=== PATIENT | female | born 1980 | race Caucasian/White ===

== ENCOUNTER 2016-07-23 17:58 | Emergency (ER) | payer OTHER ==
[~2016-07-23] VITALS: Wt 51.7 kg
[~2016-07-23 17:58] MED LIST: ALBUTEROL0.09 MG/A2 IH; AMOXICILLIN500 MG PO; ANTIVERT/2525 M1 PO; ANTIVERT/2525 MG PO; ANTIVERT25 MG PO; AUGMENTIN 875875 MG PO; CIPRO100 MG PO; CLARITIN10 MG PO; CLINDAMYCIN150 MG PO; CORTISPORIN SUS10 ML OT; CYCLOBENZAPRINE10 MG PO; CYCLOBENZAPRINE5 M3 PO; Diabeta,Micron2.5 MG PO; FLAGYL500 MG; FLAGYL500 MG PO; IBUPROFEN600 MG PO; IRON; IRON TABLETS325 MG PO; LIDOCAINE HCL100 M1 MM; MACROBID100 M1 PO; METROLOTION 5959 ML TP; MOTRIN800 MG PO; Motrin,Rufen800 MG PO; NKHM; NO DAILY MEDS; PHENERGAN12.5 M1 PO; PRENATAL1 TA3 PO; PROMETHAZINE25 M1 PO; QVAR8.7 GM IH; VICODIN 5/500 505 MG PO; ZITHROMAX Z PA250 MG PO; ZITHROMAX250 MG PO; ZOFRAN ODT4 MG SL; ZOFRAN4 MG PO; ZOLOFT50 MG PO; [UNRECOGNIZED DRUG - OTHER] PO
[2016-07-23 18:11] VITALS: BP 113/83
[2016-07-23] MEDS ORDERED: ZITHROMAX250 MG PO (18:28)
[2016-07-23] MEDS ORDERED: MEDROL DOSEPAK4 MG PO (18:28)
== END 2016-07-23 18:31 | disposition home or self-care (01) ==
LOC: ED 17:58
DX: J06.9 Acute upper respiratory infection, unspecified (principal); J45.901 Unspecified asthma with (acute) exacerbation; F17.200 Nicotine dependence, unspecified, uncomplicated; Z88.1 Allergy status to other antibiotic agents

== ENCOUNTER 2016-08-31 19:31 | Emergency (ER) | payer OTHER ==
[~2016-08-31] VITALS: Wt 65.8 kg
[~2016-08-31 19:31] MED LIST changes: +MEDROL DOSEPAK4 MG PO
[2016-08-31 19:39] VITALS: BP 116/69
[2016-08-31] MEDS ORDERED: PREDNISONE10 MG PO (19:43)
== END 2016-08-31 20:01 | disposition home or self-care (01) ==
LOC: ED 19:31
DX: M77.9 Enthesopathy, unspecified (principal); Z79.899 Other long term (current) drug therapy; Z88.1 Allergy status to other antibiotic agents

== ENCOUNTER 2016-09-14 09:33 | Emergency (ER) | payer OTHER ==
[~2016-09-14] VITALS: Ht 154.9 cm; Wt 54.9 kg
[~2016-09-14 09:33] MED LIST changes: +PREDNISONE10 MG PO
[2016-09-14] MEDS ORDERED: VENTOLIN H0.09 MG/AC INH (09:41)
[2016-09-14 10:58] VITALS: BP 106/63
== END 2016-09-14 10:48 | disposition home or self-care (01) ==
LOC: ED 09:33
DX: R51 Headache (principal); F17.200 Nicotine dependence, unspecified, uncomplicated; J45.909 Unspecified asthma, uncomplicated; Z88.1 Allergy status to other antibiotic agents

== ENCOUNTER 2016-09-30 17:01 | Emergency (ER) | payer OTHER ==
[~2016-09-30] VITALS: Ht 154.9 cm; Wt 56.2 kg
[~2016-09-30 17:01] MED LIST changes: +VENTOLIN H0.09 MG/AC INH
[2016-09-30 17:06] VITALS: BP 96/64
== END 2016-09-30 19:05 | disposition home or self-care (01) ==
LOC: ED 17:01
DX: T14.8 Other injury of unspecified body region (principal); M25.532 Pain in left wrist; M25.531 Pain in right wrist; M25.571 Pain in right ankle and joints of right foot; M25.561 Pain in right knee; M25.562 Pain in left knee; M54.2 Cervicalgia; F17.200 Nicotine dependence, unspecified, uncomplicated; Z88.1 Allergy status to other antibiotic agents; W10.9XXA Fall (on) (from) unspecified stairs and steps, initial encounter; Y93.9 Activity, unspecified; Y92.9 Unspecified place or not applicable; Y99.9 Unspecified external cause status

== ENCOUNTER → 2016-12-19 | Outpatient (CLI) | payer OTHER | END | disposition home or self-care (01) | LOC: RAD 08:40 | DX: M25.562 Pain in left knee (principal); M25.561 Pain in right knee ==

== ENCOUNTER 2017-05-20 10:26 | Emergency (ER) | payer OTHER ==
[~2017-05-20] VITALS: Ht 154.9 cm; Wt 54.4 kg
[2017-05-20 11:06] VITALS: BP 90/46
[2017-05-20 12:01] LABS: HEMATOCRIT 41.3 % (37.0-47.0); MEAN CELL VOLUME 92.4 fl (81.0-99.0); MEAN CORPUSCULAR HGB 31.3 pg (27.0-31.0); MEAN CORPUSCULAR HGB CONC 33.9 g/dl (33.0-37.0); MEAN PLATELET VOLUME 10.6 fl (9.6-12.3); PLATELET COUNT AUTOMATED 178 10*3/uL (130-400); RED BLOOD COUNT 4.47 10*6/uL (4.10-5.10); RED CELL DISTRI WIDTH 12.5 % (0-14.5); WHITE BLOOD COUNT 12.5 10*3/uL (4.8-10.8)
[2017-05-20 12:14] LABS: BILIRUBIN NEGATIVE (NEGATIVE); BLOOD NEGATIVE (NEGATIVE); CLARITY CLOUDY (CLEAR); COLOR YELLOW (YELLOW); GLUCOSE NEGATIVE (NEGATIVE); KETONE NEGATIVE (NEGATIVE); LEUKO ESTERASE NEGATIVE (NEGATIVE); NITRITE NEGATIVE (NEGATIVE)
[2017-05-20 12:15] LABS: BUN 10 mg/dl (7-24); CHLORIDE 108 mmol/L (98-107); CREATININE 0.63 mg/dL (0.55-1.02); POTASSIUM 3.7 mmol/L (3.5-5.1); SODIUM 139 mmol/L (136-145)
[2017-05-20 12:24] LABS: BASOPHILS 1 % (0-1); PLATELET SUFFICIENCY NORMAL (NORMAL); TOTAL CELLS COUNTED 100 #CELLS
[2017-05-20 12:25] LABS: VACUOLATION OF NEUTROPHILS SLIGHT
[2017-05-20 12:52] LABS: BACTERIA 2+; MUCOUS 3+
[2017-05-20] MEDS ORDERED: ZOFRAN ODT4 MG SL (13:04)
== END 2017-05-20 13:57 | disposition home or self-care (01) ==
LOC: ED 10:26
PROVIDERS: Emergency Medicine
DX: B34.9 Viral infection, unspecified (principal); J45.909 Unspecified asthma, uncomplicated; Z88.1 Allergy status to other antibiotic agents

== ENCOUNTER → 2017-06-25 | Outpatient (CLI) | payer OTHER | END | disposition home or self-care (01) | LOC: LAB 13:50 | DX: R19.7 Diarrhea, unspecified (principal) ==

== ENCOUNTER → 2017-08-06 | Outpatient (CLI) | payer OTHER | END | disposition home or self-care (01) | LOC: LAB 09:40 | DX: E03.9 Hypothyroidism, unspecified (principal) ==

== ENCOUNTER 2017-09-14 16:27 | Emergency (ER) | payer OTHER ==
[~2017-09-14] VITALS: Ht 154.9 cm; Wt 53.5 kg
[2017-09-14 16:30] VITALS: BP 116/76
[2017-09-14] MEDS ORDERED: Synthroid,Levo50 MCG PO (16:31)
[2017-09-14 16:55] LABS: BASO % 0.5 % (0.0-1.0); EOS # 0.3 10*3/uL (0.0-0.4); EOS % 3.6 % (1.0-4.0); HEMATOCRIT 41.5 % (37.0-47.0); LYMPH # 2.5 10*3/uL (1.3-4.4); MEAN CORPUSCULAR HGB 31.4 pg (27.0-31.0); MEAN CORPUSCULAR HGB CONC 33.7 g/dl (33.0-37.0); MEAN PLATELET VOLUME 10.9 fl (9.6-12.3); MONO # 0.6 10*3/uL (0.1-1.0); MONO % 7.5 % (3.0-9.0); NEUT # 4.4 10*3/uL (2.3-7.9); NEUT % 56.3 % (47.0-73.0); PLATELET COUNT AUTOMATED 195 10*3/uL (130-400); RED BLOOD COUNT 4.46 10*6/uL (4.10-5.10); RED CELL DISTRI WIDTH 12.5 % (0-14.5); WHITE BLOOD COUNT 7.8 10*3/uL (4.8-10.8)
[2017-09-14 17:21] LABS: ALBUMIN 3.7 gm/dl (3.1-4.5); ALKALINE PHOSPHATASE 86 U/L (45-117); B-hCG (QUALITATIVE) NEGATIVE (NEGATIVE); BUN 7 mg/dl (7-24); CHLORIDE 108 mmol/L (98-107); CREATININE 0.62 mg/dL (0.55-1.02); POTASSIUM 3.7 mmol/L (3.5-5.1); SGOT/AST 11 IU/L (3-35); SGPT/ALT 13 U/L (12-78); SODIUM 141 mmol/L (136-145); TOTAL PROTEIN 6.9 gm/dL (6.4-8.2)
[2017-09-14 17:22] LABS: TROPONIN I < 0.015 ng/ml (<0.045)
[2017-09-14] MEDS ORDERED: ANAPROX DS550 MG PO (17:57)
== END 2017-09-14 17:59 | disposition home or self-care (01) ==
LOC: ED 16:27
PROVIDERS: Physician Assistant
DX: R07.89 Other chest pain (principal); Z88.8 Allergy status to other drugs, medicaments and biological substances

== ENCOUNTER 2018-02-15 13:58 | Emergency (ER) | payer OTHER ==
[~2018-02-15] VITALS: Wt 54.4 kg
[~2018-02-15 13:58] MED LIST changes: +ANAPROX DS550 MG PO; +NAPROSYN500 MG PO; +Synthroid,Levo50 MCG PO
[2018-02-15 14:00] VITALS: BP 111/58
[2018-02-15] MEDS ORDERED: SEPTDS PO (14:55)
== END 2018-02-15 15:04 | disposition home or self-care (01) ==
LOC: ED 13:58
DX: L02.416 Cutaneous abscess of left lower limb (principal); Z88.1 Allergy status to other antibiotic agents; Z79.899 Other long term (current) drug therapy

== ENCOUNTER 2018-02-21 13:29 | Emergency (ER) | payer OTHER ==
[~2018-02-21] VITALS: Ht 154.9 cm; Wt 54.4 kg
[~2018-02-21 13:29] MED LIST changes: +SEPTDS PO
[2018-02-21 13:31] VITALS: BP 113/68
[2018-02-21] MEDS ORDERED: CLINDAMYCIN HC300 MG PO (14:10)
[2018-02-21] MEDS ORDERED: DELTASONE20 M1 PO (14:11)
[2018-02-21] MEDS ORDERED: BENADRYL ALLERG25 M5 PO (14:11)
== END 2018-02-21 14:28 | disposition home or self-care (01) ==
LOC: ED 13:29
DX: L50.9 Urticaria, unspecified (principal); Z88.1 Allergy status to other antibiotic agents; Z79.899 Other long term (current) drug therapy

== ENCOUNTER 2018-03-24 16:43 | Emergency (ER) | payer OTHER ==
[~2018-03-24] VITALS: Ht 154.9 cm; Wt 54.4 kg
[~2018-03-24 16:43] MED LIST changes: +BENADRYL ALLERG25 M5 PO; +CLINDAMYCIN HC300 MG PO; +DELTASONE20 M1 PO
[2018-03-24 16:44] VITALS: BP 106/64
== END 2018-03-24 17:10 | disposition home or self-care (01) ==
LOC: ED 16:43
DX: S61.012A Laceration without foreign body of left thumb without damage to nail, initial encounter (principal); Z88.1 Allergy status to other antibiotic agents; Z79.2 Long term (current) use of antibiotics; Z79.899 Other long term (current) drug therapy; W26.0XXA Contact with knife, initial encounter; Y93.89 Activity, other specified; Y92.89 Other specified places as the place of occurrence of the external cause; Y99.8 Other external cause status

== ENCOUNTER → 2018-05-01 | Day surgery (SDC) | payer OTHER ==
[~2018-05-01] VITALS: Ht 154.9 cm; Wt 60.8 kg
[~2018-05-01] MED LIST changes: +AMOXICILLIN500 M2 PO; +FLONASE ALLERG9.9 ML NAS; +ZYRTEC10 MG PO
--- NOTE | ~2018-05-01 | O ---
[place], [place] OPERATIVE NOTE NAME: INGA MCCORMICK UNIT #: [id number] ROOM: DOCTOR: CHIN TOBAR MD BIRTHDATE: [birth year] DOS: PROCEDURE: Esophagogastroduodenoscopy and biopsy. INDICATION: Dysphagia. PERMIT: An informed consent was obtained from the patient after the indication of procedure, the alternatives and potential complications were explained to her. PROCEDURE MEDICATION: Sedation was administered by Anesthesiology Department. SCOPE USED: Olympus diagnostic adult upper endoscope GIF-180. DEPTH OF INSERTION: To the descending duodenum. FINDINGS: After adequate sedation, the patient was placed in left lateral decubitus position. The scope was introduced under direct visualization through the upper esophageal sphincter into the esophagus. Esophageal mucosa showed white membranes suggestive of esophageal candidiasis, brushing was obtained. The patient also had evidence of esophageal rings in the proximal esophagus suggestive of eosinophilic esophagitis and random biopsies were obtained. The GE junction was identified at 38 cm from incisors with mild erosive esophagitis. The stomach was then intubated. Gastric mucosa inspected. Moderate gastritis was seen with no discrete ulcers or active bleeding. A MICKI test was performed from the gastric antrum and body. On retroflexed views in the fundus, no hiatal hernia was seen. Pylorus was intubated easily. The duodenal bulb and descending duodenum were within normal range. The scope was then withdrawn after the stomach was decompressed. The patient tolerated the procedure well. IMPRESSION: 1. White membrane of the esophagus, rule out esophageal candidiasis, brushing obtained. 2. Esophageal rings, random biopsies obtained to rule out eosinophilic esophagitis. 3. Mild erosive esophagitis. 4. Gastritis, MICKI test performed. PLAN: We will start the patient on proton pump inhibitors with the Prilosec 40 mg daily. We will review the cytopathology and histopathology reports and treat the patient accordingly. Office followup will be scheduled in 1-2 weeks. [place], [place] OPERATIVE NOTE NAME: INGA MCCORMICK Roe UNIT #: [id number] ROOM: DOCTOR: CHIN TOBAR MD BIRTHDATE: [birth year] CHIN TOBAR MD CM:OPRECORD:OPERATIVE NOTE [id number] CHIN TOBAR MD 05/01/18 1452 interface
[2018-05-01 06:30] VITALS: BP 93/55
[2018-05-01 08:25] VITALS: BP 91/51
[2018-05-01 08:40] VITALS: BP 89/54
[2018-05-01 08:55] VITALS: BP 90/56
== END | disposition home or self-care (01) ==
LOC: SDC 04-29 08:00
DX: K20.0 Eosinophilic esophagitis (principal); K29.70 Gastritis, unspecified, without bleeding; J45.909 Unspecified asthma, uncomplicated; G43.909 Migraine, unspecified, not intractable, without status migrainosus; F15.90 Other stimulant use, unspecified, uncomplicated; Z88.8 Allergy status to other drugs, medicaments and biological substances; Z88.1 Allergy status to other antibiotic agents; Z79.899 Other long term (current) drug therapy; Z87.891 Personal history of nicotine dependence; Z98.890 Other specified postprocedural states; Z97.5 Presence of (intrauterine) contraceptive device; Z86.14 Personal history of Methicillin resistant Staphylococcus aureus infection; Z83.3 Family history of diabetes mellitus; Z82.3 Family history of stroke; Z82.49 Family history of ischemic heart disease and other diseases of the circulatory system

== ENCOUNTER 2018-05-05 09:29 | Emergency (ER) | payer OTHER ==
[~2018-05-05] VITALS: Ht 154.9 cm; Wt 53.5 kg
[~2018-05-05 09:29] MED LIST changes: -AMOXICILLIN500 M2 PO; -FLONASE ALLERG9.9 ML NAS; -ZYRTEC10 MG PO
[2018-05-05 09:30] VITALS: BP 91/66
[2018-05-05] MEDS ORDERED: FLONASE ALLERG9.9 ML NAS (09:57)
[2018-05-05] MEDS ORDERED: ZYRTEC10 MG PO (09:57)
[2018-05-05] MEDS ORDERED: AMOXICILLIN500 M2 PO (09:57)
== END 2018-05-05 10:11 | disposition home or self-care (01) ==
LOC: ED 09:29
DX: J01.90 Acute sinusitis, unspecified (principal); Z88.1 Allergy status to other antibiotic agents

== ENCOUNTER 2018-06-07 18:36 | Emergency (ER) | payer OTHER ==
[~2018-06-07] VITALS: Ht 154.9 cm; Wt 60.8 kg
[~2018-06-07 18:36] MED LIST changes: +AMOXICILLIN500 M2 PO; +FLONASE ALLERG9.9 ML NAS; +ZYRTEC10 MG PO
[2018-06-07 18:37] VITALS: BP 109/66
[2018-06-07 19:25] LABS: BASO % 0.1 % (0.0-1.0); EOS # 0.1 10*3/uL (0.0-0.4); EOS % 1.1 % (1.0-4.0); HEMATOCRIT 41.3 % (37.0-47.0); HEMOGLOBIN 13.9 g/dl (12.0-16.0); LYMPH # 1.2 10*3/uL (1.3-4.4); LYMPH % 14.7 % (27.0-41.0); MEAN CELL VOLUME 93.7 fl (81.0-99.0); MEAN CORPUSCULAR HGB 31.5 pg (27.0-31.0); MEAN CORPUSCULAR HGB CONC 33.7 g/dl (33.0-37.0); MONO # 0.6 10*3/uL (0.1-1.0); MONO % 7.7 % (3.0-9.0); NEUT # 6.4 10*3/uL (2.3-7.9); NEUT % 76.2 % (47.0-73.0); PLATELET COUNT AUTOMATED 218 10*3/uL (130-400); RED BLOOD COUNT 4.41 10*6/uL (4.10-5.10); RED CELL DISTRI WIDTH 11.9 % (0-14.5); WHITE BLOOD COUNT 8.3 10*3/uL (4.8-10.8)
[2018-06-07 19:45] LABS: BILIRUBIN 1+ (NEGATIVE); BLOOD NEGATIVE (NEGATIVE); CLARITY SL CLOUDY (CLEAR); COLOR YELLOW (YELLOW); GLUCOSE NEGATIVE (NEGATIVE); KETONE TRACE (NEGATIVE); LEUKO ESTERASE NEGATIVE (NEGATIVE); NITRITE NEGATIVE (NEGATIVE); PH 5.5 (5.0-9.0); SPECIFIC GRAVITY >= 1.030 (1.005-1.030); UROBILINOGEN 0.2 E.U./dl (0.2-1.0)
[2018-06-07 19:47] LABS: ALBUMIN 3.7 gm/dl (3.1-4.5); ALKALINE PHOSPHATASE 88 U/L (45-117); BUN 11 mg/dl (7-24); CHLORIDE 109 mmol/L (98-107); CREATININE 0.68 mg/dL (0.55-1.02); LIPASE 103 U/L (73-393); POTASSIUM 3.7 mmol/L (3.5-5.1); SGOT/AST 14 IU/L (3-35); SGPT/ALT 21 U/L (12-78); SODIUM 141 mmol/L (136-145); TOTAL PROTEIN 7.3 gm/dL (6.4-8.2)
[2018-06-07 19:52] LABS: BACTERIA 2+; EPITHELIAL CELLS 0-2; MUCOUS 1+
[2018-06-07] MEDS ORDERED: ZOFRAN4 MG PO (20:08)
[2018-08-17] MEDS ORDERED: Motrin,Rufen800 MG PO (23:08)
== END 2018-06-07 20:24 | disposition home or self-care (01) ==
LOC: ED 18:36
PROVIDERS: Nurse Practitioner Family
DX: A08.4 Viral intestinal infection, unspecified (principal); E07.9 Disorder of thyroid, unspecified; Z88.1 Allergy status to other antibiotic agents; Z79.2 Long term (current) use of antibiotics; Z79.899 Other long term (current) drug therapy

== ENCOUNTER 2018-08-27 11:16 | Emergency (ER) | payer OTHER ==
[~2018-08-27] VITALS: Ht 154.9 cm; Wt 65.8 kg
[2018-08-27 11:19] VITALS: BP 95/67
[2018-08-27 11:49] LABS: BASO % 0.5 % (0.0-1.0); EOS # 0.2 10*3/uL (0.0-0.4); EOS % 2.2 % (1.0-4.0); HEMATOCRIT 39.6 % (37.0-47.0); HEMOGLOBIN 13.1 g/dl (12.0-16.0); LYMPH # 1.8 10*3/uL (1.3-4.4); LYMPH % 23.6 % (27.0-41.0); MEAN CELL VOLUME 94.5 fl (81.0-99.0); MEAN CORPUSCULAR HGB 31.3 pg (27.0-31.0); MEAN CORPUSCULAR HGB CONC 33.1 g/dl (33.0-37.0); MEAN PLATELET VOLUME 11.2 fl (9.6-12.3); MONO # 0.5 10*3/uL (0.1-1.0); MONO % 6.7 % (3.0-9.0); NEUT # 5.1 10*3/uL (2.3-7.9); NEUT % 66.7 % (47.0-73.0); PLATELET COUNT AUTOMATED 222 10*3/uL (130-400); RED BLOOD COUNT 4.19 10*6/uL (4.10-5.10); RED CELL DISTRI WIDTH 12.1 % (0-14.5); WHITE BLOOD COUNT 7.7 10*3/uL (4.8-10.8)
[2018-08-27 12:05] LABS: ALKALINE PHOSPHATASE 85 U/L (45-117); BUN 8 mg/dl (7-24); CHLORIDE 110 mmol/L (98-107); CREATININE 0.65 mg/dL (0.55-1.02); POTASSIUM 3.7 mmol/L (3.5-5.1); SGOT/AST 10 IU/L (3-35); SGPT/ALT 16 U/L (12-78); SODIUM 142 mmol/L (136-145); TOTAL PROTEIN 7.4 gm/dL (6.4-8.2)
[2018-08-27] MEDS ORDERED: MIRALAX119 GM PO (12:39)
[2018-08-27] MEDS ORDERED: DULCOLAX STOOL100 M1 PO (12:39)
[2018-08-27] MEDS ORDERED: ANUSOL-HC25 MG R (12:39)
== END 2018-08-27 12:42 | disposition home or self-care (01) ==
LOC: ED 11:16
PROVIDERS: Nurse Practitioner Family
DX: K64.5 Perianal venous thrombosis (principal); E07.89 Other specified disorders of thyroid; J45.909 Unspecified asthma, uncomplicated; Z79.899 Other long term (current) drug therapy; Z88.1 Allergy status to other antibiotic agents

== ENCOUNTER 2018-09-02 17:27 | Emergency (ER) | payer OTHER ==
[~2018-09-02] VITALS: Ht 154.9 cm; Wt 65.8 kg
[~2018-09-02 17:27] MED LIST changes: +ANUSOL-HC25 MG R; +DULCOLAX STOOL100 M1 PO; +MIRALAX119 GM PO
[2018-09-02 18:29] LABS: BASO % 0.5 % (0.0-1.0); EOS # 0.3 10*3/uL (0.0-0.4); EOS % 3.2 % (1.0-4.0); HEMATOCRIT 36.4 % (37.0-47.0); LYMPH # 1.9 10*3/uL (1.3-4.4); LYMPH % 22.2 % (27.0-41.0); MEAN CELL VOLUME 95.5 fl (81.0-99.0); MEAN CORPUSCULAR HGB 31.5 pg (27.0-31.0); MONO # 0.7 10*3/uL (0.1-1.0); MONO % 8.2 % (3.0-9.0); NEUT # 5.7 10*3/uL (2.3-7.9); NEUT % 65.6 % (47.0-73.0); PLATELET COUNT AUTOMATED 220 10*3/uL (130-400); RED BLOOD COUNT 3.81 10*6/uL (4.10-5.10); RED CELL DISTRI WIDTH 12.3 % (0-14.5); WHITE BLOOD COUNT 8.7 10*3/uL (4.8-10.8)
[2018-09-02 18:30] LABS: BILIRUBIN NEGATIVE (NEGATIVE); BLOOD TRACE-LYSED (NEGATIVE); CLARITY CLEAR (CLEAR); COLOR YELLOW (YELLOW); GLUCOSE NEGATIVE (NEGATIVE); KETONE TRACE (NEGATIVE); LEUKO ESTERASE NEGATIVE (NEGATIVE); NITRITE NEGATIVE (NEGATIVE); PH 5.5 (5.0-9.0); SPECIFIC GRAVITY >= 1.030 (1.005-1.030); UROBILINOGEN 0.2 E.U./dl (0.2-1.0)
[2018-09-02 18:41] LABS: BACTERIA 1+; CALCIUM OXALATE CRYSTALS 2+; MUCOUS 3+
[2018-09-02 18:49] LABS: ALBUMIN 3.6 gm/dl (3.1-4.5); ALKALINE PHOSPHATASE 77 U/L (45-117); BUN 7 mg/dl (7-24); CHLORIDE 113 mmol/L (98-107); CREATININE 0.75 mg/dL (0.55-1.02); LIPASE 103 U/L (73-393); POTASSIUM 3.4 mmol/L (3.5-5.1); SGOT/AST 6 IU/L (3-35); SGPT/ALT 18 U/L (12-78); SODIUM 145 mmol/L (136-145); TOTAL PROTEIN 7.2 gm/dL (6.4-8.2)
[2018-09-02 20:08] VITALS: BP 110/64
[2018-09-02] MEDS ORDERED: SEPTDS PO (20:32)
== END 2018-09-02 20:50 | disposition home or self-care (01) ==
LOC: ED 17:27
PROVIDERS: Physician Assistant
DX: N39.0 Urinary tract infection, site not specified (principal); F17.200 Nicotine dependence, unspecified, uncomplicated; Z88.1 Allergy status to other antibiotic agents; Z79.2 Long term (current) use of antibiotics; Z79.899 Other long term (current) drug therapy

== ENCOUNTER 2018-09-22 09:03 | Emergency (ER) | payer OTHER ==
[~2018-09-22] VITALS: Ht 154.9 cm; Wt 56.7 kg
--- NOTE | ~2018-09-22 | EKG ---
[place], [place] ELECTROCARDIOGRAM REPORT NAME: INGA MCCORMICK UNIT #: [id number] ROOM: DOCTOR: EPIPHANY DRAFT REPORT BIRTHDATE: [birth year] [facility] Test Date: 2018-09-22 Test Time: 10:14:09 Pat Name: INGA MCCORMICK Department: Room: Gender: F Inpatient Services Director: : 1980 Requested By: DARI GOMEZ Order Number: [id number] Reading MD: Gregor Qureshi MD Measurements Intervals [place] Rate: 52 P: 61 AL: 150 QRS: 35 QRSD: 94 T: 54 QT: 509 QTc: 474 Interpretive Statements Sinus bradycardia No previous ECG available for comparison Electronically Signed On 09-23-2018 11:20:57 PDT by Gregor Qureshi MD CM:EKGRPT:ELECTROCARDIOGRAM REPORT [id number] DARI GOMEZ EPIPHANY DRAFT REPORT DARI GOMEZ
[2018-09-22 10:15] LABS: BILIRUBIN NEGATIVE (NEGATIVE); BLOOD NEGATIVE (NEGATIVE); CLARITY CLEAR (CLEAR); COLOR YELLOW (YELLOW); GLUCOSE NEGATIVE (NEGATIVE); KETONE NEGATIVE (NEGATIVE); LEUKO ESTERASE NEGATIVE (NEGATIVE); NITRITE NEGATIVE (NEGATIVE); PH 7.5 (5.0-9.0); SPECIFIC GRAVITY <= 1.005 (1.005-1.030); UROBILINOGEN 0.2 E.U./dl (0.2-1.0)
[2018-09-22 10:18] LABS: BASO % 0.3 % (0.0-1.0); EOS # 0.4 10*3/uL (0.0-0.4); EOS % 5.5 % (1.0-4.0); HEMATOCRIT 38.9 % (37.0-47.0); HEMOGLOBIN 12.8 g/dl (12.0-16.0); LYMPH # 1.8 10*3/uL (1.3-4.4); LYMPH % 28.2 % (27.0-41.0); MEAN CELL VOLUME 96.3 fl (81.0-99.0); MEAN CORPUSCULAR HGB 31.7 pg (27.0-31.0); MEAN CORPUSCULAR HGB CONC 32.9 g/dl (33.0-37.0); MEAN PLATELET VOLUME 10.1 fl (9.6-12.3); MONO # 0.5 10*3/uL (0.1-1.0); MONO % 7.7 % (3.0-9.0); NEUT # 3.7 10*3/uL (2.3-7.9); NEUT % 58.1 % (47.0-73.0); PLATELET COUNT AUTOMATED 215 10*3/uL (130-400); RED BLOOD COUNT 4.04 10*6/uL (4.10-5.10); RED CELL DISTRI WIDTH 12.6 % (0-14.5); WHITE BLOOD COUNT 6.4 10*3/uL (4.8-10.8)
[2018-09-22 10:29] LABS: RBC 0-2 rbc/hpf (0-2)
[2018-09-22 10:34] LABS: ALBUMIN 3.8 gm/dl (3.1-4.5); ALKALINE PHOSPHATASE 70 U/L (45-117); BUN 7 mg/dl (7-24); CHLORIDE 109 mmol/L (98-107); POTASSIUM 4.1 mmol/L (3.5-5.1); SGOT/AST 10 IU/L (3-35); SGPT/ALT 15 U/L (12-78); SODIUM 141 mmol/L (136-145); TOTAL PROTEIN 6.8 gm/dL (6.4-8.2)
[2018-09-22 10:35] LABS: TROPONIN I < 0.015 ng/ml (<0.045)
[2018-09-22 11:30] VITALS: BP 109/61
== END 2018-09-22 12:05 | disposition home or self-care (01) ==
LOC: ED 09:03
PROVIDERS: Nurse Practitioner Family
DX: R53.83 Other fatigue (principal); R42 Dizziness and giddiness; R20.0 Anesthesia of skin; F17.200 Nicotine dependence, unspecified, uncomplicated; Z88.1 Allergy status to other antibiotic agents; Z79.2 Long term (current) use of antibiotics; Z79.899 Other long term (current) drug therapy

== ENCOUNTER → 2018-11-26 | Outpatient (CLI) | payer OTHER | END | disposition home or self-care (01) | LOC: RAD 09:58 | DX: M25.531 Pain in right wrist (principal) ==

== ENCOUNTER → 2019-12-21 | Outpatient (CLI) | payer OTHER | END | disposition home or self-care (01) | LOC: RAD 11:00 | PROVIDERS: ATTEND Family Medicine | DX: M25.512 Pain in left shoulder (principal) ==

== ENCOUNTER 2020-06-11 14:31 | Emergency (ER) | payer OTHER ==
[~2020-06-11] VITALS: Ht 154.9 cm; Wt 59.0 kg
[2020-06-11 15:01] LABS: BASO # 0.1 10*3/uL (0.0-0.1); BASO % 0.6 % (0.0-1.0); EOS # 0.4 10*3/uL (0.0-0.4); EOS % 5.1 % (1.0-4.0); HEMATOCRIT 42.8 % (37.0-47.0); LYMPH # 2.4 10*3/uL (1.3-4.4); LYMPH % 28.6 % (27.0-41.0); MEAN CELL VOLUME 94.5 fl (81.0-99.0); MEAN CORPUSCULAR HGB 31.3 pg (27.0-31.0); MEAN CORPUSCULAR HGB CONC 33.2 g/dl (33.0-37.0); MEAN PLATELET VOLUME 10.6 fl (9.6-12.3); MONO # 0.7 10*3/uL (0.1-1.0); MONO % 8.1 % (3.0-9.0); NEUT # 4.7 10*3/uL (2.3-7.9); NEUT % 57.5 % (47.0-73.0); PLATELET COUNT AUTOMATED 216 10*3/uL (130-400); RED BLOOD COUNT 4.53 10*6/uL (4.10-5.10); RED CELL DISTRI WIDTH 12.1 % (0-14.5); WHITE BLOOD COUNT 8.2 10*3/uL (4.8-10.8)
[2020-06-11 15:24] LABS: ALBUMIN 3.1 gm/dl (3.1-4.5); ALKALINE PHOSPHATASE 71 U/L (45-117); BUN 8 mg/dl (7-24); CHLORIDE 113 mmol/L (98-107); CREATININE 0.58 mg/dL (0.55-1.02); LIPASE 203 U/L (73-393); POTASSIUM 3.8 mmol/L (3.5-5.1); SGOT/AST 7 IU/L (3-35); SGPT/ALT 21 U/L (12-78); SODIUM 142 mmol/L (136-145); TOTAL PROTEIN 6.4 gm/dL (6.4-8.2)
[2020-06-11 15:45] LABS: BILIRUBIN Negative (Negative); BLOOD Negative (Negative); CLARITY Clear (Clear); COLOR Yellow (Yellow); GLUCOSE Negative (Negative); KETONE Negative (Negative); LEUKO ESTERASE Trace (Negative); NITRITE Negative (Negative); SPECIFIC GRAVITY 1.025 (1.001-1.030)
[2020-06-11 15:46] LABS: PH 8.5 (4.5-8.0)
[2020-06-11 15:52] LABS: BACTERIA 1+; EPITHELIAL CELLS 31-40; RBC 0-2 rbc/hpf (0-2)
[2020-06-11 18:48] VITALS: BP 120/72
== END 2020-06-11 20:19 | disposition home or self-care (01) ==
LOC: ED 14:31
PROVIDERS: Physician Assistant
DX: R10.32 Left lower quadrant pain (principal); R11.0 Nausea; J45.909 Unspecified asthma, uncomplicated; F17.200 Nicotine dependence, unspecified, uncomplicated; Z88.8 Allergy status to other drugs, medicaments and biological substances; Z79.899 Other long term (current) drug therapy; Z98.890 Other specified postprocedural states

== ENCOUNTER 2020-07-21 11:01 | Emergency (ER) | payer OTHER ==
[~2020-07-21] VITALS: Ht 154.9 cm; Wt 61.2 kg
[2020-07-21 11:06] VITALS: BP 124/64
[2020-07-21] MEDS ORDERED: PREDNISONE20 M1 PO (14:08)
== END 2020-07-21 14:14 | disposition home or self-care (01) ==
LOC: ED 11:01
DX: J45.901 Unspecified asthma with (acute) exacerbation (principal); Z20.822 Contact with and (suspected) exposure to COVID-19; F17.200 Nicotine dependence, unspecified, uncomplicated; Z79.899 Other long term (current) drug therapy; Z88.1 Allergy status to other antibiotic agents

== ENCOUNTER 2021-12-29 09:34 | Emergency (ER) | payer OTHER ==
[~2021-12-29] VITALS: Ht 154.9 cm; Wt 63.5 kg
[~2021-12-29 09:34] MED LIST changes: +PREDNISONE20 M1 PO
[2021-12-29 10:12] VITALS: BP 102/71
[2021-12-29] MEDS ORDERED: Motrin,Rufen400 MG PO (13:05)
== END 2021-12-29 13:42 | disposition home or self-care (01) ==
LOC: ED 09:34
DX: S82.891A Other fracture of right lower leg, initial encounter for closed fracture (principal); Z88.1 Allergy status to other antibiotic agents; F17.200 Nicotine dependence, unspecified, uncomplicated; X50.1XXA Overexertion from prolonged static or awkward postures, initial encounter; Y93.89 Activity, other specified; Y92.89 Other specified places as the place of occurrence of the external cause; Y99.8 Other external cause status

== ENCOUNTER → 2022-05-25 | Outpatient (CLI) | payer OTHER ==
[~2022-05-25] MED LIST changes: +Motrin,Rufen400 MG PO
== END | disposition home or self-care (01) ==
LOC: RAD 08:17
PROVIDERS: ATTEND Chiropractor
DX: M54.2 Cervicalgia (principal)

== ENCOUNTER 2023-12-28 19:40 | Emergency (ER) | payer OTHER ==
[~2023-12-28] VITALS: Ht 154.9 cm; Wt 64.0 kg
[2023-12-28 19:54] VITALS: BP 116/72
[2023-12-28] MEDS ORDERED: LEVOTHYROXINE13 MCG PO (19:56)
[2023-12-28] MEDS ORDERED: ADVAIR HFA 115-12 GM INH (19:58)
[2023-12-28] MEDS ORDERED: Acetaminophen/Oxycodone 5 MG/325 MG TABLET PO ONE (21:45)
[2023-12-28] MEDS ORDERED: PREDNISONE20 M1 PO (21:46)
[2023-12-28] MEDS ORDERED: methylPREDNISolone sod succ 125 MG VIAL IM ONE (21:50)
== END 2023-12-28 23:26 | disposition home or self-care (01) ==
LOC: ED 19:40
DX: M94.0 Chondrocostal junction syndrome [Tietze] (principal); J45.909 Unspecified asthma, uncomplicated; Z88.8 Allergy status to other drugs, medicaments and biological substances; Z98.890 Other specified postprocedural states